=== PATIENT | female | born 1940 | race Caucasian/White ===

== ENCOUNTER 2021-01-19 19:15 | Inpatient (IN) ==
[2021-01-19 20:15] LABS: Basophils % 0.3 %; Eosinophils % 0.3 %; Hematocrit 37.1 % (35.3-44.9); Hemoglobin 12.2 g/dL (11.5-15.4); Immature Granulocytes % 0.3 % (0-4); Immature Platelets 3.4 % (1.1-6.1); Lymphocytes # 0.7 K/mcL (0.6-4.6); Lymphocytes % 21.9 %; Mean Corpuscular HGB Conc 32.9 g/dL (31.6-35.5); Mean Corpuscular Hemoglobin 31.7 pg (28.0-33.3); Mean Corpuscular Volume 96.4 fL (83.0-100.0); Mean Platelet Volume 11.3 fL (9.4-12.4); Monocytes # 0.4 K/mcL (0.0-1.3); Monocytes % 13.2 %; Neutrophils # 2.1 K/mcL (1.6-8.9); Platelet Count 103 K/mcL (140-400); Red Blood Count 3.85 M/mcL (3.82-4.97); Red Cell Distribution Width 13.3 % (11.5-14.5); White Blood Count 3.3 K/mcL (4.3-11.1)
[2021-01-19 20:36] LABS: INR 2.3; Prothrombin Time 25.4 Seconds (9.4-12.1)
[2021-01-19 20:38] LABS: Activated Partial Thrombo Time 39.4 Seconds (26.0-36.0)
[2021-01-19] MEDS ORDERED: Ipratropium/Albuterol Neb 3 ML IH ONE (21:07)
[2021-01-19 21:21] LABS: Influenza A PCR Negative (Negative); Influenza B PCR Negative (Negative); Resp. Syncytial Virus PCR Negative (Negative)
[2021-01-19 21:25] LABS: SARS-CoV-2 by PCR (In House) Positive (Negative)
[2021-01-19] MEDS ORDERED: Ipratropium 1 PUFF INHALER IH PRN (22:04)
[2021-01-19] MEDS ORDERED: Acetaminophen 325 MG TABLET PO PRN (22:05)
[2021-01-19] MEDS ORDERED: Naloxone 0.4 MG/ML INJ IVP PRN (22:05)
[2021-01-19] MEDS ORDERED: Ondansetron 4 MG/2 ML VIAL IVP PRN (22:05)
[2021-01-19] MEDS ORDERED: Dextrose Gel 15 GM/37.5 ML TUBE PO PRN ×2 (22:09)
[2021-01-19] MEDS ORDERED: *HR* Dextrose 50 % in Water (Syg) 50 ML SYRINGE IVP PRN (22:09)
[2021-01-19] MEDS ORDERED: D5% in Water 1,000 ML IVC PRN (22:09)
[2021-01-19 22:45] LABS: Alanine Aminotransferase 10 Units/L (7-52); Albumin 2.2 g/dL (3.5-5.7); Albumin/Globulin Ratio 1.1 (1.1-2.2); Alkaline Phosphatase 60 Units/L (34-104); Aspartate Amino Transferase 19 Units/L (13-39); BUN/Creatinine Ratio 14 (6-26); Bilirubin,Direct 0.1 mg/dL (0.0-0.2); Bilirubin,Indirect 0.2 mg/dL (0.0-1.0); Bilirubin,Total 0.3 mg/dL (0.3-1.0); Blood Urea Nitrogen 12 mg/dL (8-23); Calcium 5.4 mg/dL (8.6-10.3); Carbon Dioxide 22 mEq/L (23-29); Chloride 110 mEq/L (98-107); Creatine Kinase 70 Units/L (30-223); Glucose 164 mg/dL (70-105); Osmolality,Calculated 287 (280-300); Potassium 2.8 mEq/L (3.5-5.1); Sodium 137 mEq/L (136-145); Total Protein 4.2 g/dL (6.4-8.9); eGFR For African Americans > 60 (> 60); eGFR For Non-African Americans > 60 (> 60)
[2021-01-19] MEDS: Calcium Gluconate 1gm/50mL 1 GM/50 ML BAG IVPB SCH (23:31)
[2021-01-20] MEDS: Calcium Gluconate 1gm/50mL 1 GM/50 ML BAG IVPB SCH (00:25)
[2021-01-20 03:23] LABS: Troponin I 0.04 ng/mL (< 0.04)
[2021-01-20 04:16] LABS: Color,Urine Yellow (Yellow)
[2021-01-20 04:17] LABS: Bilirubin,Urine Negative (Negative); Blood,Urine Moderate (Negative); Clarity,Urine Turbid (Clear); Glucose,Urine (UA) Normal (Normal); Ketones,Urine Trace mg/dL (Negative); Leukocyte Esterase,Urine Moderate (Negative); Nitrite,Urine Negative (Negative); PH,Urine 6.5 pH Units (5.0-8.0); Protein,Urine 50 mg/dL (Neg-Trace); Specific Gravity,Urine 1.018 (1.010-1.025); Urobilinogen,Urine Normal (Normal)
[2021-01-20 04:18] LABS: Bacteria,Urine Many per hpf (None-Few); RBC,Urine 0-3 per hpf (0-3); Squamous Epithelial Cell,Urine Moderate per hpf (None-Few)
[2021-01-20] MEDS: *HR* Enoxaparin 40 MG/0.4 ML SYRINGE SQ SCH (05:13)
[2021-01-20] MEDS: cefTRIAXone 1,000 MG in 0.9 % Sodium Chloride Mini Bag 100 ML IVPB SCH (05:13)
[2021-01-20 06:03] LABS: Calcium 7.7 mg/dL (8.6-10.3); Magnesium 1.2 mg/dL (1.6-2.6)
[2021-01-20] MEDS: Insulin LISPRO 300 UNITS/3 ML VIAL SUBQ SCH ×3 (07:34→16:50)
[2021-01-20 08:37] LABS: Adenovirus F 40/41 PCR Not detected (Not detect); Astrovirus PCR Not detected (Not detect); C.difficile Toxin A/B Gene PCR Not detected (Not detect); Campylobacter by PCR Not detected (Not detect); Cryptosporidium by PCR Not detected (Not detect); Cyclospora cayetanensis PCR Not detected (Not detect); E. coli O157 by PCR Not detected (Not detect); Entamoeba histolytica PCR Not detected (Not detect); Enteroaggregative E.coli(EAEC) Not detected (Not detect); Enteropathogenic E.coli(EPEC) Not detected (Not detect); Enterotoxigenic E.coli (ETEC) Not detected (Not detect); Giardia lamblia PCR Not detected (Not detect); Norovirus GI/GII PCR Not detected (Not detect); Plesiomonas shigelloides PCR Not detected (Not detect); Rotavirus A PCR Not detected (Not detect); Salmonella PCR Not detected (Not detect); Sapovirus PCR Not detected (Not detect); Shig/EnteroinvasiveE coli EIEC Not detected (Not detect); Shigalike tox-prod E coli STEC Not detected (Not detect); Vibrio PCR Not detected (Not detect); Vibrio cholerae PCR Not detected (Not detect); Yersinia enterocolitica PCR Not detected (Not detect)
[2021-01-20 12:31] LABS: Hemoglobin 10.7 g/dL (11.5-15.4); Mean Platelet Volume 11.2 fL (9.4-12.4)
[2021-01-20 12:33] LABS: Basophils % 0.4 %; Hematocrit 33.2 % (35.3-44.9); Immature Granulocytes % 0.4 % (0-4); Immature Platelets 4.4 % (1.1-6.1); Lymphocytes # 0.6 K/mcL (0.6-4.6); Mean Corpuscular HGB Conc 32.2 g/dL (31.6-35.5); Mean Corpuscular Hemoglobin 30.7 pg (28.0-33.3); Mean Corpuscular Volume 95.4 fL (83.0-100.0); Monocytes # 0.2 K/mcL (0.0-1.3); Neutrophils # 1.8 K/mcL (1.6-8.9); Red Blood Count 3.48 M/mcL (3.82-4.97); Red Cell Distribution Width 12.9 % (11.5-14.5); Segmented Neutrophils % 69.2 %; White Blood Count 2.6 K/mcL (4.3-11.1)
[2021-01-20 12:41] LABS: Platelet Count 95 K/mcL (140-400)
[2021-01-20 13:31] LABS: Ferritin 266 ng/mL (10-120); Lactate Dehydrogenase 226 Units/L (140-271)
[2021-01-20] MEDS ORDERED: Remdesivir 200 MG in 0.9 % Sodium Chloride 100 ML IVPB ONE (19:00)
[2021-01-20 19:34] LABS: Hematocrit 33.6 % (35.3-44.9); Hemoglobin 10.8 g/dL (11.5-15.4); Immature Granulocytes % 0.3 % (0-4); Mean Corpuscular HGB Conc 32.1 g/dL (31.6-35.5); Mean Corpuscular Hemoglobin 30.3 pg (28.0-33.3); Mean Corpuscular Volume 94.4 fL (83.0-100.0); Red Blood Count 3.56 M/mcL (3.82-4.97)
[2021-01-20 19:36] LABS: Basophils % 0.3 %; Immature Platelets 4.6 % (1.1-6.1); Lymphocytes # 0.6 K/mcL (0.6-4.6); Lymphocytes % 19.5 %; Mean Platelet Volume 11.5 fL (9.4-12.4); Monocytes # 0.3 K/mcL (0.0-1.3); Monocytes % 8.8 %; Neutrophils # 2.1 K/mcL (1.6-8.9); Red Cell Distribution Width 12.7 % (11.5-14.5); Segmented Neutrophils % 71.1 %
[2021-01-20 19:46] LABS: Platelet Count 97 K/mcL (140-400)
[2021-01-20 20:06] LABS: Calcium 7.8 mg/dL (8.6-10.3); Magnesium 1.1 mg/dL (1.6-2.6); Potassium 3.9 mEq/L (3.5-5.1)
[2021-01-21 04:42] LABS: C-Reactive Protein 41 mg/L (Less than 10)
[2021-01-21] MEDS: *HR* Enoxaparin 40 MG/0.4 ML SYRINGE SQ SCH (04:56)
[2021-01-21] MEDS: cefTRIAXone 1,000 MG in 0.9 % Sodium Chloride Mini Bag 100 ML IVPB SCH (04:56)
[2021-01-21] MEDS: Insulin LISPRO 300 UNITS/3 ML VIAL SUBQ SCH ×3 (08:17→17:51)
[2021-01-21 09:57] LABS: Basophils % 0.2 %
[2021-01-21 09:59] LABS: Eosinophils % 0.2 %; Hematocrit 36.5 % (35.3-44.9); Hemoglobin 11.7 g/dL (11.5-15.4); Immature Granulocytes % 0.2 % (0-4); Immature Platelets 3.5 % (1.1-6.1); Lymphocytes # 0.9 K/mcL (0.6-4.6); Lymphocytes % 17.7 %; Mean Corpuscular HGB Conc 32.1 g/dL (31.6-35.5); Mean Corpuscular Hemoglobin 30.5 pg (28.0-33.3); Mean Corpuscular Volume 95.1 fL (83.0-100.0); Mean Platelet Volume 11.1 fL (9.4-12.4); Monocytes # 0.4 K/mcL (0.0-1.3); Monocytes % 6.9 %; Neutrophils # 3.9 K/mcL (1.6-8.9); Platelet Count 103 K/mcL (140-400); Red Blood Count 3.84 M/mcL (3.82-4.97); Red Cell Distribution Width 13.2 % (11.5-14.5); Segmented Neutrophils % 74.8 %; White Blood Count 5.2 K/mcL (4.3-11.1)
[2021-01-21 10:11] LABS: Alanine Aminotransferase 15 Units/L (7-52); Albumin 3.1 g/dL (3.5-5.7); Albumin/Globulin Ratio 1.1 (1.1-2.2); Alkaline Phosphatase 75 Units/L (34-104); Aspartate Amino Transferase 39 Units/L (13-39); BUN/Creatinine Ratio 18 (6-26); Bilirubin,Direct 0.1 mg/dL (0.0-0.2); Bilirubin,Indirect 0.2 mg/dL (0.0-1.0); Bilirubin,Total 0.3 mg/dL (0.3-1.0); Blood Urea Nitrogen 18 mg/dL (8-23); Calcium 7.7 mg/dL (8.6-10.3); Carbon Dioxide 22 mEq/L (23-29); Chloride 106 mEq/L (98-107); Globulin 2.7 g/dL (2.4-3.5); Glucose 153 mg/dL (70-105); Magnesium 1.1 mg/dL (1.6-2.6); Osmolality,Calculated 285 (280-300); Potassium 4.3 mEq/L (3.5-5.1); Sodium 135 mEq/L (136-145); Total Protein 5.8 g/dL (6.4-8.9); eGFR For African Americans > 60 (> 60); eGFR For Non-African Americans 54 (> 60)
[2021-01-21] MEDS: Apixaban 5 MG TABLET PO SCH ×2 (10:21→21:54)
[2021-01-21] MEDS: Aspirin Enteric Coated 81 MG Tablet PO SCH (10:21)
[2021-01-21] MEDS: Methylphenidate HCl 10 MG TABLET PO SCH (10:21)
[2021-01-21] MEDS: Metoprolol XL (24 HR) Succ 25 MG TAB.ER.24H PO SCH (10:21)
[2021-01-21] MEDS: Gabapentin 300 MG CAPSULE PO SCH ×2 (10:21→21:54)
[2021-01-21] MEDS: levETIRAcetam 250 MG TABLET PO SCH ×2 (10:21→22:33)
[2021-01-21] MEDS: Fluticasone Propionate Nasal 50 MCG/SPRAY BOTTLE NS SCH (10:24)
[2021-01-21] MEDS: Melatonin 3 MG TABLET PO SCH (21:54)
[2021-01-21] MEDS: Remdesivir 100 MG in 0.9 % Sodium Chloride 100 ML IVPB SCH (21:55)
[2021-01-21] MEDS: Mirtazapine 15 MG TABLET PO SCH (22:33)
[2021-01-22 01:25] LABS: Immature Granulocytes % 0.2 % (0-4); Red Blood Count 3.46 M/mcL (3.82-4.97); Red Cell Distribution Width 13.2 % (11.5-14.5)
[2021-01-22 01:28] LABS: Basophils % 0.2 %; Hematocrit 33.4 % (35.3-44.9); Hemoglobin 10.6 g/dL (11.5-15.4); Immature Platelets 3.4 % (1.1-6.1); Lymphocytes # 0.8 K/mcL (0.6-4.6); Lymphocytes % 18.1 %; Mean Corpuscular HGB Conc 31.7 g/dL (31.6-35.5); Mean Corpuscular Hemoglobin 30.6 pg (28.0-33.3); Mean Corpuscular Volume 96.5 fL (83.0-100.0); Mean Platelet Volume 11.7 fL (9.4-12.4); Monocytes # 0.4 K/mcL (0.0-1.3); Monocytes % 8.9 %; Neutrophils # 3.2 K/mcL (1.6-8.9); Segmented Neutrophils % 72.6 %; White Blood Count 4.4 K/mcL (4.3-11.1)
[2021-01-22 01:30] LABS: Platelet Count 96 K/mcL (140-400)
[2021-01-22 01:54] LABS: Alanine Aminotransferase 13 Units/L (7-52); Albumin 2.8 g/dL (3.5-5.7); Albumin/Globulin Ratio 1.1 (1.1-2.2); Alkaline Phosphatase 59 Units/L (34-104); Aspartate Amino Transferase 34 Units/L (13-39); BUN/Creatinine Ratio 20 (6-26); Bilirubin,Direct 0.1 mg/dL (0.0-0.2); Bilirubin,Indirect 0.2 mg/dL (0.0-1.0); Bilirubin,Total 0.3 mg/dL (0.3-1.0); Blood Urea Nitrogen 19 mg/dL (8-23); Calcium 7.3 mg/dL (8.6-10.3); Carbon Dioxide 21 mEq/L (23-29); Chloride 105 mEq/L (98-107); Globulin 2.5 g/dL (2.4-3.5); Glucose 108 mg/dL (70-105); Magnesium 1.1 mg/dL (1.6-2.6); Osmolality,Calculated 283 (280-300); Potassium 4.2 mEq/L (3.5-5.1); Sodium 135 mEq/L (136-145); Total Protein 5.3 g/dL (6.4-8.9); eGFR For African Americans > 60 (> 60); eGFR For Non-African Americans 57 (> 60)
[2021-01-22] MEDS: cefTRIAXone 1,000 MG in 0.9 % Sodium Chloride Mini Bag 100 ML IVPB SCH (04:11)
[2021-01-22] MEDS: Insulin LISPRO 300 UNITS/3 ML VIAL SUBQ SCH ×3 (07:51→17:56)
[2021-01-22] MEDS ORDERED: Ergocalciferol (VIT D2) 50,000 UNIT (1.25MG) CAP PO ONE (08:51)
[2021-01-22] MEDS: Aspirin Enteric Coated 81 MG Tablet PO SCH (10:34)
[2021-01-22] MEDS: Gabapentin 300 MG CAPSULE PO SCH ×2 (10:34→21:01)
[2021-01-22] MEDS: Methylphenidate HCl 10 MG TABLET PO SCH (10:34)
[2021-01-22] MEDS: levETIRAcetam 250 MG TABLET PO SCH ×2 (10:35→20:56)
[2021-01-22] MEDS: Metoprolol XL (24 HR) Succ 25 MG TAB.ER.24H PO SCH (10:36)
[2021-01-22] MEDS: Apixaban 5 MG TABLET PO SCH ×2 (10:36→21:01)
[2021-01-22] MEDS: Fluticasone Propionate Nasal 50 MCG/SPRAY BOTTLE NS SCH (10:36)
[2021-01-22] MEDS: Remdesivir 100 MG in 0.9 % Sodium Chloride 100 ML IVPB SCH (20:55)
[2021-01-22] MEDS: Cefdinir 300 MG CAPSULE PO SCH (20:56)
[2021-01-22] MEDS: Mirtazapine 15 MG TABLET PO SCH (20:57)
[2021-01-22] MEDS: Melatonin 3 MG TABLET PO SCH (21:00)
[2021-01-23 02:52] LABS: Hematocrit 34.2 % (35.3-44.9); Hemoglobin 11.1 g/dL (11.5-15.4); Mean Corpuscular HGB Conc 32.5 g/dL (31.6-35.5); Mean Corpuscular Hemoglobin 31.2 pg (28.0-33.3); Mean Corpuscular Volume 96.1 fL (83.0-100.0); Mean Platelet Volume 11.4 fL (9.4-12.4); Monocytes # 0.5 K/mcL (0.0-1.3); Platelet Count 107 K/mcL (140-400); Red Blood Count 3.56 M/mcL (3.82-4.97); Red Cell Distribution Width 13.2 % (11.5-14.5); White Blood Count 4.5 K/mcL (4.3-11.1)
[2021-01-23 02:59] LABS: Alanine Aminotransferase 14 Units/L (7-52); Albumin 2.7 g/dL (3.5-5.7); Alkaline Phosphatase 59 Units/L (34-104); Aspartate Amino Transferase 32 Units/L (13-39); BUN/Creatinine Ratio 22 (6-26); Bilirubin,Direct 0.1 mg/dL (0.0-0.2); Bilirubin,Indirect 0.3 mg/dL (0.0-1.0); Bilirubin,Total 0.4 mg/dL (0.3-1.0); Blood Urea Nitrogen 23 mg/dL (8-23); Calcium 7.4 mg/dL (8.6-10.3); Carbon Dioxide 24 mEq/L (23-29); Chloride 105 mEq/L (98-107); Globulin 2.6 g/dL (2.4-3.5); Glucose 98 mg/dL (70-105); Magnesium 1.2 mg/dL (1.6-2.6); Osmolality,Calculated 288 (280-300); Potassium 4.2 mEq/L (3.5-5.1); Sodium 137 mEq/L (136-145); Total Protein 5.3 g/dL (6.4-8.9); eGFR For African Americans > 60 (> 60); eGFR For Non-African Americans 50 (> 60)
[2021-01-23 07:26] LABS: Neutrophils # 3.1 K/mcL (1.6-8.9); Platelet Estimate Normal (Normal)
[2021-01-23] MEDS: Insulin LISPRO 300 UNITS/3 ML VIAL SUBQ SCH ×3 (13:03→18:53)
[2021-01-23] MEDS: Aspirin Enteric Coated 81 MG Tablet PO SCH (13:05)
[2021-01-23] MEDS: Apixaban 5 MG TABLET PO SCH ×2 (13:06→21:14)
[2021-01-23] MEDS: Magnesium Oxide 400 MG TABLET PO SCH ×2 (13:06→21:14)
[2021-01-23] MEDS: Cefdinir 300 MG CAPSULE PO SCH ×2 (13:06→21:14)
[2021-01-23] MEDS: Gabapentin 300 MG CAPSULE PO SCH ×2 (13:06→21:13)
[2021-01-23] MEDS: dexAMETHasone 4 MG TABLET PO SCH (13:06)
[2021-01-23] MEDS: Fluticasone Propionate Nasal 50 MCG/SPRAY BOTTLE NS SCH (13:07)
[2021-01-23] MEDS: Metoprolol XL (24 HR) Succ 25 MG TAB.ER.24H PO SCH (13:08)
[2021-01-23] MEDS: levETIRAcetam 250 MG TABLET PO SCH ×2 (13:19→21:16)
[2021-01-23] MEDS: Methylphenidate HCl 10 MG TABLET PO SCH (13:19)
[2021-01-23] MEDS: Remdesivir 100 MG in 0.9 % Sodium Chloride 100 ML IVPB SCH (20:02)
[2021-01-23] MEDS: Mirtazapine 15 MG TABLET PO SCH (21:13)
[2021-01-23] MEDS: Melatonin 3 MG TABLET PO SCH (21:14)
[2021-01-24 02:11] LABS: Basophils % 0.3 %; Hematocrit 33.2 % (35.3-44.9); Hemoglobin 10.8 g/dL (11.5-15.4); Immature Granulocytes % 0.3 % (0-4); Lymphocytes # 0.6 K/mcL (0.6-4.6); Mean Corpuscular HGB Conc 32.5 g/dL (31.6-35.5); Mean Corpuscular Hemoglobin 30.3 pg (28.0-33.3); Mean Corpuscular Volume 93.3 fL (83.0-100.0); Mean Platelet Volume 11.2 fL (9.4-12.4); Monocytes # 0.3 K/mcL (0.0-1.3); Monocytes % 9.2 %; Neutrophils # 2.7 K/mcL (1.6-8.9); Platelet Count 127 K/mcL (140-400); Red Blood Count 3.56 M/mcL (3.82-4.97); Red Cell Distribution Width 12.8 % (11.5-14.5); Segmented Neutrophils % 73.2 %; White Blood Count 3.7 K/mcL (4.3-11.1)
[2021-01-24 02:30] LABS: Blood Urea Nitrogen 23 mg/dL (8-23); Calcium 7.7 mg/dL (8.6-10.3); Carbon Dioxide 25 mEq/L (23-29); Chloride 102 mEq/L (98-107); Glucose 282 mg/dL (70-105); Magnesium 1.3 mg/dL (1.6-2.6); Osmolality,Calculated 292 (280-300); Potassium 4.6 mEq/L (3.5-5.1); Sodium 134 mEq/L (136-145)
[2021-01-24 02:31] LABS: Albumin 2.7 g/dL (3.5-5.7); Bilirubin,Indirect 0.5 mg/dL (0.0-1.0); Bilirubin,Total 0.5 mg/dL (0.3-1.0); Globulin 2.7 g/dL (2.4-3.5); Total Protein 5.4 g/dL (6.4-8.9)
[2021-01-24 02:42] LABS: Platelet Estimate Normal (Normal); Reactive Lymphocytes Present (Not Present)
[2021-01-24 03:17] LABS: BUN/Creatinine Ratio 23 (6-26); eGFR For African Americans > 60 (> 60); eGFR For Non-African Americans 54 (> 60)
[2021-01-24] MEDS: Remdesivir 100 MG in 0.9 % Sodium Chloride 100 ML IVPB SCH (06:07)
[2021-01-24] MEDS: Metoprolol XL (24 HR) Succ 25 MG TAB.ER.24H PO SCH (09:12)
[2021-01-24] MEDS: Aspirin Enteric Coated 81 MG Tablet PO SCH (09:26)
[2021-01-24] MEDS: Apixaban 5 MG TABLET PO SCH (09:26)
[2021-01-24] MEDS: Cefdinir 300 MG CAPSULE PO SCH (09:26)
[2021-01-24] MEDS: Gabapentin 300 MG CAPSULE PO SCH (09:26)
[2021-01-24] MEDS: Magnesium Oxide 400 MG TABLET PO SCH (09:26)
[2021-01-24] MEDS: dexAMETHasone 4 MG TABLET PO SCH (09:27)
[2021-01-24] MEDS: levETIRAcetam 250 MG TABLET PO SCH (09:28)
[2021-01-24] MEDS: Methylphenidate HCl 10 MG TABLET PO SCH (09:28)
[2021-01-24] MEDS: Insulin LISPRO 300 UNITS/3 ML VIAL SUBQ SCH ×2 (09:29→13:20)
[2021-01-24] MEDS: Fluticasone Propionate Nasal 50 MCG/SPRAY BOTTLE NS SCH (09:38)
[2021-01-24 15:26] VITALS: BP 162/67; PULSE 52; TEMP 98.5; O2SAT 91
== END 2021-01-24 17:08 | disposition home health service (06) | DRG 177 ==
LOC: 3BNU 19:15 → EMEROOARM 19:15 → SUATTDRO 21:59 → 3BNU 22:35
PROVIDERS: ADMIT Student in an Organized Health Care Education/Training Program; ATTEND Student in an Organized Health Care Education/Training Program